=== PATIENT | female | born 1995 | race Caucasian/White ===

== ENCOUNTER 2018-01-29 21:31 | Emergency (ER) | payer SELFPAY ==
[~2018-01-29] VITALS: Ht 154.9 cm; Wt 86.2 kg
[2018-01-29] MEDS ORDERED: SEPTDS PO (23:06)
== END 2018-01-29 23:12 | disposition home or self-care (01) ==
LOC: ED 21:31
DX: O86.0 Infection of obstetric surgical wound (principal); Z79.2 Long term (current) use of antibiotics; Z98.890 Other specified postprocedural states